=== PATIENT | female | born 1985 | race Caucasian/White ===

== ENCOUNTER → 2021-08-01 | Outpatient (CLI) | payer OTHER ==
[2021-08-01 12:34] LABS: HEMOGLOBIN 13.8 gm/dl (12.3-15.3); RED BLOOD COUNT 5.14 M/UL (4.00-5.10); WHITE BLOOD COUNT 12.2 K/UL (4.5-11.0)
[2021-08-01 13:31] LABS: BUN/CREATININE RATIO 11 (0-10)
[2021-08-02 08:12] LABS: COMPLEMENT C3, SERUM 175 mg/dL (82-167); COMPLEMENT C4, SERUM 49 mg/dL (12-38); RHEUMATOID ARTHRITIS FACTOR <10.0 IU/mL (<14.0)
[2021-08-02 11:13] LABS: HCV AB <0.1 (0.0-0.9)
[2021-08-02 12:13] LABS: HBSAG SCREEN Negative (Negative); HEP B CORE AB, TOT Negative (Negative)
== END ==
LOC: LAB 11:26
PROVIDERS: Internal Medicine
DX: R79.82 Elevated C-reactive protein (CRP) (principal); R53.83 Other fatigue; M25.50 Pain in unspecified joint; Z79.899 Other long term (current) drug therapy; D89.89 Other specified disorders involving the immune mechanism, not elsewhere classified
CPT/HCPCS: 36415; 80053; 82550; 85025; 85652; 86140; 86160; 86200; 86431; 86704; 86803; 87340